=== PATIENT | male | born 1965 | race Caucasian/White ===

== ENCOUNTER 2024-09-22 13:48 | Emergency (ER) | payer OTHER, SELFPAY ==
[2024-09-22 13:53] VITALS: BP 136/91; PULSE 89; RESP 18; TEMP 36.9; O2SAT 94; BMI 44.9
--- NOTE | 2024-09-22 14:48 | CRLHL7_ITS ---
For Patients: As a result of the Cures Act, medical imaging exams and procedure reports are released immediately into your electronic medical record. You may view this report before your referring provider. If you have questions, please contact your health care provider. INDICATION: Laceration to 4th and 5th fingertip TECHNIQUE: Hand radiograph 3 views left COMPARISON: None FINDINGS: Bone: No acute fractures or aggressive bone lesions are identified. Joint: The carpal and metacarpal-phalangeal joints are unremarkable in appearance. The interphalangeal joints are normal in appearance. Soft tissue: Unremarkable. No radiopaque foreign bodies are seen. IMPRESSION: 1. No acute osseous injuries or abnormalities are noted. Dictated by: Nate Mcmahan MD @ 09/22/2024 15:23:11 (Electronically Signed)
--- NOTE | 2024-09-22 14:49 | ED.GENADULT ---
HPI - General Adult General Chief complaint: Laceration/Wound Stated complaint: Cut 3 fingers Time Seen by Provider: 09/22/24 13:50 History of Present Illness HPI narrative: [age] year white male presents with an injury to his 4th and 5th finger on the left hand with a hedge clipper. He cut the tip of the finger on both of these digits and the ring finger he cleaned down to about the base of the nail but on the volar surface he also has a large laceration on the plantar surface of the index finger. The patient and has no other injuries he is not up-to-date on tetanus. He is on Sunday RO. Related Data Home Medications ?Medication ?Instructions ?Recorded ?Confirmed tirzepatide 12.5 mg/0.5 mL 12.5 mg subcut QWEEK 09/22/24 09/22/24 subcutaneous pen injector (Mounjaro) Allergies Allergy/AdvReac Type Severity Reaction Status Date / Time No Known Drug Allergies Allergy Verified 09/22/24 13:57 Review of Systems Status of ROS: Reports: 6 or more systems reviewed and unremarkable except as noted in History and below PFSH PFSH Social History Smoking Status: Former smoker What tobacco products do you use: cigarettes How often do you have a drink containing alcohol: monthly or less AUDIT-C Alcohol total score: 1 Non-prescribed substance use: denies use Exam Narrative: Exam Narrative: Objective: Patient is alert or x3 he has got a laceration that is fairly shallow flap through the volar surface of the medial rib volar surface of the me of the lateral 5th finger he has got a cleavage laceration down on the volar surface of the 4th finger. There does not appear to be bony involvement but we will get an x-ray for completeness. Good cap refill distal CMS appears intact Const: Vital Signs, click to edit/add: Vital Signs - 24 hr 09/22/24 13:53 Temperature 98.4 F Pulse Rate [Right Pulse Oximeter] 89 Respiratory Rate 18 Blood Pressure [Ri ght Forearm] 136/91 H Pulse Oximetry 94 Oxygen Delivery Me thod Room Air Course Vital Signs Vital signs: Initial Vital Signs Temperature 98.4 F 09/22/24 13:53 Temperature Source Temporal Artery Scan 09/22/24 13:53 Pulse Rate 89 09/22/24 13:53 Pulse Rhythm Regular 09/22/24 13:53 Pulse Strength 3+ Normal 09/22/24 13:53 Respiratory Rate 18 09/22/24 13:53 Blood Pressure 136/91 H 09/22/24 13:53 Blood Pressure Mean 106 H 09/22/24 13:53 Blood Pressure Position Sitting 09/22/24 13:53 Pulse Oximetry 94 09/22/24 13:53 Oxygen Delivery Method Room Air 09/22/24 13:53 Vital Signs Temperature 98.4 F 09/22/24 13:53 Pulse Rate 89 09/22/24 13:53 Respiratory Rate 18 09/22/24 13:53 Blood Pressure 136/91 H 09/22/24 13:53 Pulse Oximetry 94 09/22/24 13:53 Oxygen Delivery Method Room Air 09/22/24 13:53 Temperature 98.4 F 09/22/24 13:53 Pulse Rate 89 09/22/24 13:53 Respiratory Rate 18 09/22/24 13:53 Blood Pressure 136/91 H 09/22/24 13:53 Pulse Oximetry 94 09/22/24 13:53 Oxygen Delivery Method Room Air 09/22/24 13:53 Medications Administered Medications: Discontinued Medications Generic Name Dose Route Start Last Admin Trade Name Freq PRN Reason Stop Dose Admin Cephalexin HCl 500 mg 09/22/24 14:47 09/22/24 15:05 Cephalexin 500 Mg Capsule PO 09/22/24 14:48 500 mg ONCE ONE Administration Diphtheria/Tetanus/Acell Pertussis 0.5 ml 09/22/24 14:47 09/22/24 15:07 Tetanus/Diphth/Pertussis 0.5 Ml Syringe IM 09/22/24 14:48 0.5 ml .ONCE ONE Administration Medical Decision Making MDM Narrative Medical decision making narrative: 58-year-old male with 4th and 5th finger injury on the left hand laceration with a hedge clipper. Procedure after sterile scrub and irrigation 1% xylocaine without epinephrine injected for anesthesia patient tolerated this well he had 3-0 simple brought interrupted Ethilon sutures placed multiple in both digits and good wound approximation good hemostasis good distal CMS after repair. His flap on his little finger is a little bit dusky and it is fairly shallow and superficial to the tangential to this surface of the skin there does not appear to be any vascular involvement. But I am concerned that that may not be a viable flap but have closed it at this time. X-ray of the fingers are pending if this is negative will put him on Keflex 500 q.i.d. x5 days, he can take Tylenol as needed, light duty for the next 3-4 days and then wound recheck in 3 days suture removal in 7 days. Would give him Keflex as mention as well given updated Tdap. He has comfortable plan. Discharge Plan Discharge Clinical Impression: Laceration Patient Disposition: Home w/ Parent or Adult Condition: Improved Additional Instructions: Keep the fingers covered for the next 24 hours then may soak in soapy water 3 times a day, Keflex 4 times a day x5 days. May take Tylenol Advil as needed. Wound recheck with primary care in 3 days, suture removal in 7 days. instymeds Activity Level: Light activity Discharge Diet: Regular Prescriptions: No Action Mounjaro 12.5 mg/0.5 mL pen injector 12.5 mg subcut QWEEK Stand Alone Forms: [facility] Info Instructions
[2024-09-22] MEDS: cephALEXin 500 MG CAPSULE PO (15:05)
--- OUTSIDE RECORDS SUMMARY | 2024-09-22 15:06 | XMS_ITS | Clinical Summary ---
Author Organization [employer] [facility] Address [address] [place] [id number] Care Team Providers Care Branch Controller Name Role Phone Judd Rehman MD Primary Care Provider Allergies No known active allergies Medications Dexcom G7 Cooker Process Cheese for continuous blood glucose monitor (CGM)Indication s:Type 2 diabetes mellitus without complication, with long-term current use of insulin (HC) To be used to read blood sugars follow alterations supervisor directions. 1 Each 4 Active semaglutide, weight loss, (Wegovy) 2.4 mg/0.75 mL penIndications: Class 3 severe obesity due to excess calories with serious comorbidity and body mass index (BMI) of 45.0 to 49.9 in adult (HC) Inject 2.4 mg subcutaneous once weekly. 3 mL 11 4 Active triamcinolone 0.5% (ARISTOCORT) 0.5 % creamIndication s:Chronic eczema two times daily. 60 g 5 4 Active Dexcom G7 Sensor for continuous blood glucose monitor (CGM)Indication s:Type 2 diabetes mellitus without complication, with long-term current use of insulin (HC) TO BE USED TO READ BLOOD SUGARS, FOLLOW SOFTWARE QUALITY AUTOMATION ENGINEER DIRECTIONS. 9 Each 3 4 Active tirzepatide (Mounjaro) 2.5 mg/0.5 mL penIndications: Type 2 diabetes mellitus without complication, without long-term current use of insulin (HC) Inject 2.5 mg subcutaneous once weekly. 2 mL 4 Active tirzepatide (Mounjaro) 5 mg/0.5 mL penIndications: Type 2 diabetes mellitus without complication, without long-term current use of insulin (HC) Inject 5 mg subcutaneous once weekly. 2 mL 4 Active tirzepatide (Mounjaro) 7.5 mg/0.5 mL penIndications: Type 2 diabetes mellitus without complication, without long-term current use of insulin (HC) Inject 7.5 mg subcutaneous once weekly. 2 mL 4 Active pen tirzepatide (Mounjaro) 10 mg/0.5 mL penIndications: Type 2 diabetes mellitus without complication, without long-term current use of insulin (HC) Inject 10 mg subcutaneous once weekly. 2 mL 4 Active tirzepatide (Mounjaro) 12.5 mg/0.5 mL penIndications: Type 2 diabetes mellitus without complication, without long-term current use of insulin (HC) Inject 12.5 mg subcutaneous once weekly. 2 mL 4 Active tirzepatide (Mounjaro) 15 mg/0.5 mL penIndications: Type 2 diabetes mellitus without complication, without long-term current use of insulin (HC) Inject 15 mg subcutaneous once weekly. 2 mL 4 Active Active Problems Problem Noted Date Diagnosed Date Type 2 diabetes, diagnosis 09/1909/18/2022 Morbid obesity with BMI of 45.0-49.9, adult 08/29 Low vitamin D level 09/18/2022 Mixed hyperlipidemia 09/18/2022 Immunizations Immunization Administration Dates Next Due Pneumococcal Poly,23-Valent (Pneumovax) 06/04/19 10 Tdap 06/04/2009 Social History Tobacco Use Types Packs/Day Years Used Date Smoking Tobacco: Former Smokeless Tobacco: Never Alcohol Use Standard Drinks/Week Comments Not Currently 0 (1 standard drink = 0.6 oz pur e alcohol) PHQ-2 Answer Date Recorded PHQ-2 TOTAL SCORE 3 03/24/2024 Social Connections Answer Date Recorded Do you often feel lonely or isolated from those around you? 0 04/13/2024 Financial Resource Strain Answer Date R ecorded Difficulty of Paying Living Expenses 3 04/13/2024 Difficulty of Paying Living Expenses Not on file 04/13/2024 Food Insecurity Answer Date Recorded Do you worry your food will run out before you are able to buy more? 1 04/13/2024 Transportation Needs Answer Date Record ed Does lack of transportation keep you from medica l appointments? 1 04/13/2024 Does lack of transportation keep you from work, meetings or getting things that you need? 1 04/13/2024 Housing Stability Answer Date Recorded What is your housing situation today? 1 04/13/2024 Utilities Answer Date Recorded Do you have trouble paying f or utilities (for example, heat, electricity, water, phone)? 1 04/13/2024 Sex and Gender Information Value Date Recorded Sex Assigned at Not on file Legal Sex Male 8:54 AM CDT Gender Identity Not on file Sexual Orientation Not on file Obstetrics History Last Filed Vital Signs Vital Sign Reading Time Taken Comments Blood Pressure 132/84 04/14/2024 12:27 PM [employer] Pulse 72 04/14/2024 12:27 PM [employer] Temperature 36.8 C (98.2 F) 03/24/2024 7:31 AM [employer] COUN[employer] Respiratory Rate - - Oxygen Saturation 94% 03/24/2024 7:31 AM [employer]AMP COUNSEL[employer] Inhaled Oxygen Concentration - - Weight 167.4 kg (369 lb) 04/14/2024 12:27 PM [employer]AMP COUNSEL[employer] Height 186.1 cm (6' 1.25) 04/14/2024 12:[address] Body Mass Index 48.35 04/14/2024 12:27 PM [employer] COUNSEL[employer] Plan of Treatment Health Maintenance Due Date Last Done Comments HIV for age 15-65 1981 Hepatitis C screening for ag e 18-79 1984 Hepatitis B series for 19+ ( 1 of 3 - 19+ 3-dose series) 1985 Pneumococcal series for age 50+ (2 of 2 - PCV) 06/04/2010 06/04/2009 Colonoscopy through age 75 12/21/2011 Zoster (shingles) series for age 50+ (1 of 2) 2016 Tetanus booster 06/04/2019 06/04/2009 COVID-19 vaccine series (2 - season) 2023 04/01/2021 Influenza Vaccine (Season Ended) 2024 Depression screening for age 12+ 03/24/2025 03/24/2024, 09/11/2022, 09/11/2022 BMI (ht and wt on same day) for age 18+ 04/14/2025 04/14/2024, 03/24/2024, 09/11/2022, Additional history exists Lipids for age 45-75 07/29/2028 07/30/2023, 10/23/2022, 09/11/2022 Tdap Completed 06/04/2009 Procedures Procedure Name Priority Date/Time Associated Diagnosis Comments LIPID PANEL Routine 07/30/2023 9:43 AM CDT Mixed hyperlipidemia from Last 3 Months or Most Recently Relevant to Health Maintenance Results * LIPID PANEL (07/30/2023 9:43 AM CDT) CHOLESTEROL,TOTAL 183 100 - 199 mg/dL 07/30/2023 6:05 PM CDT [facility] flux - neutrinity [facility] Comment: Cholesterol, Total Reference Ranges Desirable <200 mg/dL Borderline 200-239 mg/dL High >=240 mg/dL TRIGLYCERIDES 149 <150 mg/dL 07/30/2023 6:05 PM CDT [facility] HDL CHOLESTEROL 49 >40 mg/dL 6:05 PM CDT [facility] NON-HDL CHOLESTEROL 134 <145 mg/dl 07/30/2023 6:05 PM CDT [facility] CHOL/HDL RATIO 3.73 <4.50 07/30/2023 6:05 PM CDT [facility] LDL CHOLESTEROL 104 <=130 mg/dL 07/30/2023 6:05 PM CDT [facility] VLDL CHOLESTEROL 30 <=30 mg/dL 07/30/2023 6:05 PM CDT [facility] PROVIDER ORDERED STATUS RANDOM 07/30/2023 6:05 PM CDT [facility] Blood BLOOD SPECIMEN / Unknown Venipuncture / Unknown 07/30/2023 9:43 AM CDT 07/30/2023 9:46 AM CDT us Judd Rehman MD CHEMISTRY Final Result [facility] [address] [place] [address], from Last 3 Months or Most Recently Relevant to Health Maintenance Insurance [facility] [employer] [facility] Care Teams Branch Controller Relationship Specialty [place] [id number] [place] [address] PCP - General Family Practice 04/14/24
[2024-09-22] MEDS: TETANUS/DIPHTH/PERTUSSIS 0.5 ML SYRINGE IM (15:07)
== END 2024-09-22 15:28 | disposition home or self-care (01) ==
PROVIDERS: Emergency Provider Family Medicine
DX: S61.412A Laceration without foreign body of left hand, initial encounter (principal); W29.3XXA Contact with powered garden and outdoor hand tools and machinery, initial encounter; Y93.H2 Activity, gardening and landscaping; Z23 Encounter for immunization
CPT/HCPCS: 12001; 73130; 90471; 90715; 99284; A9270